=== PATIENT | female | born 1965 | race Caucasian/White ===

== ENCOUNTER 2022-07-23 13:04 | Emergency (ER) | payer MEDICAID ==
[~2022-07-23] VITALS: Ht 154.9 cm; Wt 70.8 kg
[2022-07-23 13:07] VITALS: BP 175/93
--- NOTE | 2022-07-23 13:12 | NUR ---
PT AMB TO BED 5.
--- NOTE | 2022-07-23 13:20 | NUR ---
Patient being evaluated by physician at bedside.
--- NOTE | 2022-07-23 13:20 | NUR ---
PT C/O LLQ ABDOMINAL PAIN WITH DYSURIA AND FREQUENCY SINCE THIS AM
[2022-07-23] MEDS ORDERED: KETOROLAC 30 MG/ML VIAL IVP ONE (13:25)
--- NOTE | 2022-07-23 13:40 | NUR ---
ULTRASOUND AT BEDSIDE.
[2022-07-23 14:03] LABS: BASOPHILS # (AUTO) 0.1 K/uL (0.00-0.22); BASOPHILS % (AUTO) 0.3 % (0.0-2.0); EOSINOPHILS # (AUTO) 0.1 K/uL (0-0.4); EOSINOPHILS % (AUTO) 0.4 % (0.0-4.0); HEMOGLOBIN 14.5 g/dL (12.0-16.0); LYMPHOCYTES # (AUTO) 2.1 K/uL (2.5-16.5); LYMPHOCYTES % (AUTO) 12.4 % (20.5-51.1); MEAN CORPUSCULAR HEMOGLOBIN 29 pg (27-31); MEAN CORPUSCULAR HGB CONC 33 g/dL (33-37); MEAN CORPUSCULAR VOLUME 86.9 fL (80-94); MONOCYTES # (AUTO) 0.8 K/uL (0.8-1.0); MONOCYTES % (AUTO) 4.5 % (1.7-9.3); NEUTROPHILS # (AUTO) 13.9 K/uL (1.8-7.7); NEUTROPHILS % (AUTO) 82.4 % (42.2-75.2); PLATELET COUNT (AUTO) 333 K/uL (140-450); RED BLOOD CELL COUNT(AUTO) 5.06 MIL/uL (4.20-5.40); RED CELL DISTRIBUTION WIDTH 14.4 % (11.6-13.7); WHITE BLOOD COUNT (AUTO) 16.9 K/uL (4.8-10.8)
[2022-07-23 14:04] LABS: BILIRUBIN,URINE NEGATIVE (NEGATIVE); BLOOD, URINE 3+ (NEGATIVE); COLOR,URINE YELLOW (YELLOW); LEUKOCYTE ESTERASE ,URINE 1+ (NEGATIVE); NITRITE, URINE POSITIVE (NEGATIVE); UGLUCOSE NEGATIVE (NEGATIVE)
[2022-07-23 14:11] LABS: ALBUMIN 4.2 g/dL (3.4-5.0); ANION GAP 14.6 (8-16); CARBON DIOXIDE 25.5 mmol/L (21-32); CREATININE 0.6 mg/dL (0.6-1.3); POTASSIUM 4.1 mmol/L (3.5-5.1); TOTAL BILIRUBIN 0.2 mg/dL (0.0-1.0)
[2022-07-23 14:15] LABS: APPEARANCE,URINE CLOUDY (CLEAR)
[2022-07-23 14:16] LABS: RBC,URINE 11-20 (MOD) /HPF (0-5)
[2022-07-23 14:17] LABS: WBC,URINE 80-100 /HPF (0-5)
[2022-07-23] MEDS ORDERED: CEPH-588 PO (16:34)
[2022-07-23] MEDS ORDERED: IBUP-2213 PO (16:34)
[2022-07-23] MEDS ORDERED: HYDROcodone/APAP 10/325 MG 1 TAB TAB PO ONE (16:40)
--- NOTE | 2022-07-23 17:09 | NUR ---
IV removed, catheter intact and site benign. Applied folded 4x4 gauze and tape to stop bleeding.
[2022-07-23 17:10] VITALS: BP 161/74
--- NOTE | 2022-07-23 17:10 | NUR ---
Patient discharged with v/s stable. Written and verbal after care instructions given and explained. Patient alert, oriented and verbalized understanding of instructions. Ambulatory with steady gait. All questions addressed prior to discharge. ID band removed. Patient advised to follow up with PMD. Rx of CEPHALEXIN, IBUPROFEN (SENT) given. Patient educated on indication of medication including possible reaction and side effects. Opportunity to ask questions provided and answered. COPY OF LABS AND IMAGING GIVEN WORK NOTE GIVEN
== END 2022-07-23 17:10 | disposition home or self-care (01) ==
LOC: MED 13:04
DX: R10.32 Left lower quadrant pain (principal); R30.0 Dysuria; F17.210 Nicotine dependence, cigarettes, uncomplicated
CPT/HCPCS: 36415; 74176; 76830; 80053; 81001; 81025; 85025; 87086; 93976; 96374; 99285; J1885; Q0092

== ENCOUNTER 2022-10-06 10:05 | Emergency (ER) | payer MEDICAID ==
[~2022-10-06] VITALS: Ht 152.4 cm; Wt 73.0 kg
[~2022-10-06 10:05] MED LIST: CEPH-588 PO; IBUP-2213 PO
[2022-10-06 10:20] VITALS: BP 140/89
--- NOTE | 2022-10-06 10:24 | NUR ---
Patient ambulated to bed 5.
--- NOTE | 2022-10-06 10:30 | NUR ---
Dr. Pak evaluating patient at bedside.
--- NOTE | 2022-10-06 10:30 | NUR ---
The patient's care was reviewed and supervised by MARIZOL DILLON RN.
[2022-10-06] MEDS ORDERED: KETOROLAC 60 MG/2 ML VIAL IM ONE (10:35)
--- NOTE | 2022-10-06 10:39 | NUR ---
X-Ray at bedside.
--- NOTE | 2022-10-06 10:42 | NUR ---
57 y/o female bib self with c/o left leg pain. Patient reports pain being chronic for the past 4 years. Denies any recent fall or trauma. Patient denies taking any medication prior to arrival. Medical History: Denies NKDA
[2022-10-06] MEDS ORDERED: NAPR-54 PO (11:00)
--- NOTE | 2022-10-06 11:06 | NUR ---
DISCHARGED BY DR. CHINCHILLA. Patient discharged with v/s stable. Written and verbal after care instructions given. Patient alert, oriented and verbalized understanding of instructions. Ambulatory with steady gait. All questions addressed prior to discharge. ID band removed. Patient advised to follow up with PMD. Rx of NAPROXEN given. Opportunity to ask questions provided and answered.
== END 2022-10-06 11:06 | disposition home or self-care (01) ==
LOC: MED 10:05
DX: M13.862 Other specified arthritis, left knee (principal); Z79.899 Other long term (current) drug therapy
CPT/HCPCS: 73562; 96372; 99283; J1885; Q0092

== ENCOUNTER 2023-01-01 21:12 | Emergency (ER) | payer MEDICAID ==
[~2023-01-01] VITALS: Ht 154.9 cm; Wt 72.6 kg
[~2023-01-01 21:12] MED LIST changes: +NAPR-54 PO
[2023-01-01 21:38] VITALS: BP 134/76; PULSE 98; RESP 16; TEMP 97.2; O2SAT 100
[2023-01-01] MEDS ORDERED: ACETAMINOPHEN 325 MG TAB PO ONE (22:15)
[2023-01-01] MEDS ORDERED: PENICILLIN V POTASSIUM 250 MG TAB PO ONE (22:15)
[2023-01-01] MEDS ORDERED: KETOROLAC 15 MG/ML VIAL IM ONE (22:15)
[2023-01-01] MEDS ORDERED: PENI500T20 PO (22:44)
== END 2023-01-01 22:54 | disposition home or self-care (01) ==
LOC: MED 21:12
DX: K04.7 Periapical abscess without sinus (principal); Z79.899 Other long term (current) drug therapy
CPT/HCPCS: 96372; 99283; J1885